=== PATIENT | male | born 1970 | race Caucasian/White ===

== ENCOUNTER 2018-04-14 19:08 | Inpatient (IN) | payer SELFPAY ==
[2018-04-14 19:09] VITALS: BP 150/113; PULSE 115; RESP 17; TEMP 36.9; O2SAT 98; BMI 33.2
--- NOTE | 2018-04-14 19:16 | RAD_ITS ---
STUDY: X-RAY CHEST REASON FOR EXAM: Male, 47 years old. Shortness of breath. Chest pain TECHNIQUE: Single AP portable view of the chest. COMPARISON: None. FINDINGS: There are monitoring devices There is mild interstitial accentuation. There is no demonstrated pleural abnormality. There is moderate cardiac enlargement. Normal mediastinum and maria esther. Normal visualized pulmonary arteries. Normal visualized aortic arch and descending thoracic aorta. Normal visualized thoracic spine. Normal visualized ribs, clavicles, and shoulders. There is no demonstrated abnormality of the visualized soft tissue structures of the upper abdomen. RAD/Chest 1 View (Portable) IMPRESSION: Cardiac enlargement. Interstitial edema or fibrosis. Electronically Signed: Jose Lambert MD at 19:54 EDT , Service support ,
--- NOTE | 2018-04-14 19:16 | EKG12_ITS ---
Test Reason : CHEST TIGHTNESS,SOB Blood Pressure : / mmHG Vent. Rate : 116 BPM Atrial Rate : 116 BPM P-R Int : 136 ms QRS Dur : 092 ms QT Int : 346 ms P-R-T Axes : 057 -26 004 degrees QTc Int : 480 ms Sinus tachycardia with frequent Premature ventricular complexes and Fusion complexes Right atrial enlargement Borderline ECG Confirmed by JORGE HURD, GERI ([id number]), image editor SANTIAGO BUENO ([id number]) on 04/19/2018 3:13:46 PM Referred By: SHELLY/NELY Confirmed By:GERI PATEL MD
--- NOTE | 2018-04-14 19:18 | ED.RN ---
NO OLD EKGS IN MUSE.
--- NOTE | 2018-04-14 19:56 | CT_ITS ---
STUDY: CTA CHEST REASON FOR EXAM: Male, 47 years old. Dyspnea RADIATION DOSAGE (If Supplied By Facility): CTDIvol = ( 20.05 ) mGy, DLP = ( 648.56 ) mGycm TECHNIQUE: The examination was performed with the intravenous administration of 100 ml of Isovue 370 contrast material. Post-processing of the angiographic images was performed, with multiplanar reformation and 3D reconstruction. Individualized dose optimization techniques were used for this CT. COMPARISON: Chest x-ray. FINDINGS: Normal enhancement of the main pulmonary artery and right and left pulmonary arteries. Small filling defect involving right lower lung pulmonary arteries consistent with embolism, series 2 images 103/265 through 111/265 . Normal thoracic aorta and visualized great vessels. There is no demonstrated aortic dissection. There is cardiomegaly. Normal mediastinum. Normal hilar regions. Normal visualized trachea and bronchi. The lungs are well expanded. There are lower lung interstitial septal and groundglass opacities. There is small right pleural effusion Normal chest wall structures. Normal osseous structures. Normal visualized upper abdomen. CT/CTA Chest W/WO Contrast IMPRESSION: Abnormal CTA chest examination, with a demonstrated small pulmonary embolism on the right. Small right pleural effusion. Lower lung edema. Results discussed with Dr. Matos. N.B. : The above information has been verbally conveyed by Jose Lambret MD to Hemal Matos MD, on 04/14/2018 22:00:45 (ET). Electronically Signed: Jose Lambert MD at 21:26 EDT , Service support ,
--- NOTE | 2018-04-14 20:00 | ED.VISSUMM ---
- ER Visit Summary Date of Service: 04/14/18 Chief Complaint: Exertional dyspnea History of Present Illness: The patient is a [address] of hypertension for which he took himself off his medications. Currently is not seeing a doctor. Patient states he was fine up until about a week ago. States he just has not felt right. He has had exertional dyspnea. Especially with cutting the grass or with walking steps. Intermittent mild chest pain. He is never had a DVT or PE. He denies any significant recent travel or surgery. He has developed swelling in both legs. He has no prior cardiac history of cardiac workup. He denies any hemoptysis or calf pain. He does state that he felt feverish. Physical Examination: Middle-aged male. Initial blood pressure 115/113. Temperature 98. Pulse ox 98% on room air. He is tachycardic at 115. No distress. H EENT exam unremarkable. Neck nontender no JVD. Lungs clear to auscultation bilaterally. Heart tachycardic rate about 117. I do not appreciate any murmur. It appears to be a regular rhythm. Abdomen soft nondistended normal bowel sounds no peritoneal signs. He is moving all 4 extremities. Neurovascularly intact. He is equal symmetrical career representative strength. Dorsi and plantar flexion intact. He does have 1+ pitting edema in both lower extremities are equal symmetrical. Calves are nontender without cords. Neurologically is awake and alert. Back is nontender. Test Results: Patient will undergo cardiac workup. Portable chest x-ray appears to have cardiomegaly. And mild vascular congestion. There is no infiltrate. Read both by myself and the radiologist. EKG shows a sinus tachycardia with PVCs. His right atrial enlargement and LVH.. Chemistries unremarkable except for creatinine 1.3. Gap of 8. TSH normal. Troponin 0 0.055. His beta metric peptide is elevated at 2411 consistent with congestive heart failure. CTA of the chest shows a small right lateral PE according to the radiologist. Also bilateral pleural effusions. No pericardial effusion. Again read by the radiologist. Emergency Department Course and Treatment: Patient is tachycardic with exertional dyspnea. Chest x-ray appears to have cardiomegaly. He will undergo further evaluation. Given IV Lasix. Will be started on Xarelto for a possible PE. We may have to do additional blood pressure medications. Treatment Plan: I spoke to both the hospitalist and also the manager front button breaker Dr. Manoj Rowland. She will be admitted to the PCU. Will have echocardiogram done in the morning. Disposition: Admission Impression: Acute exertional dyspnea Cardiomegaly Acute congestive heart failure Acute on chronic hypertension with medical noncompliance Small right lateral pulmonary emboli Peripheral lower extremity edema This note was generated with [employer] dictation software. It may contain incorrect words, spelling, and punctuation that were not noted in review of the chart prior to signing ED Disposition - Plan for ED Patient: Chief Complaint: Shortness of Breath Referrals: NOT,DEFINED [NON-STAFF] -
--- NOTE | 2018-04-14 20:04 | ED.DCSUM_ITS ---
- ER Visit Summary Date of Service: 04/14/18 Chief Complaint: Exertional dyspnea History of Present Illness: The patient is a [address] of hypertension for which he took himself off his medications. Currently is not seeing a doctor. Patient states he was fine up until about a week ago. States he just has not felt right. He has had exertional dyspnea. Especially with cutting the grass or with walking steps. Intermittent mild chest pain. He is never had a DVT or PE. He denies any significant recent travel or surgery. He has developed swelling in both legs. He has no prior cardiac history of cardiac workup. He denies any hemoptysis or calf pain. He does state that he felt feverish. Physical Examination: Middle-aged male. Initial blood pressure 115/113. Temperature 98. Pulse ox 98% on room air. He is tachycardic at 115. No distress. H EENT exam unremarkable. Neck nontender no JVD. Lungs clear to auscultation bilaterally. Heart tachycardic rate about 117. I do not appreciate any murmur. It appears to be a regular rhythm. Abdomen soft nondistended normal bowel sounds no peritoneal signs. He is moving all 4 extremities. Neurovascularly intact. He is equal symmetrical folder seamer automatic strength. Dorsi and plantar flexion intact. He does have 1+ pitting edema in both lower extremities are equal symmetrical. Calves are nontender without cords. Neurologically is awake and alert. Back is nontender. Test Results: Patient will undergo cardiac workup. Portable chest x-ray appears to have cardiomegaly. And mild vascular congestion. There is no infiltrate. Read both by myself and the radiologist. EKG shows a sinus tachycardia with PVCs. His right atrial enlargement and LVH.. Chemistries unremarkable except for creatinine 1.3. Gap of 8. TSH normal. Troponin 0 0.055. His beta metric peptide is elevated at 2411 consistent with congestive heart failure. CTA of the chest shows a small right lateral PE according to the radiologist. Also bilateral pleural effusions. No pericardial effusion. Again read by the radiologist. Emergency Department Course and Treatment: Patient is tachycardic with exertional dyspnea. Chest x-ray appears to have cardiomegaly. He will undergo further evaluation. Given IV Lasix. Will be started on Xarelto for a possible PE. We may have to do additional blood pressure medications. Treatment Plan: I spoke to both the hospitalist and also the human factors engineer cutting and boning supervisor Dr. Manoj Rowland. She will be admitted to the PCU. Will have echocardiogram done in the morning. Disposition: Admission Impression: Acute exertional dyspnea Cardiomegaly Acute congestive heart failure Acute on chronic hypertension with medical noncompliance Small right lateral pulmonary emboli Peripheral lower extremity edema This note was generated with [employer] dictation software. It may contain incorrect words, spelling, and punctuation that were not noted in review of the chart prior to signing ED Disposition - Plan for ED Patient: Chief Complaint: Shortness of Breath Referrals: NOT,DEFINED [NON-STAFF] -
[2018-04-14 20:10] LABS: Absolute Lymphocyte Count 1.29 X10^3/ul (0.83-4.51); Absolute Neutrophil Count 8.3 X10^3/uL (2.0-7.7); Basophil# 0.02 X10^3/uL; Basophil% 0.2 % (0-1); Eosinophil# 0.21 X10^3/uL; Eosinophils% 1.9 % (0-5); Hematocrit 47.1 % (40-54); Hemoglobin 15.3 g/dl (13.0-16.5); Lymphocyte # 1.29 X10^3/ul (4.0); Mean Corp Hgb Conc 32.5 g/gl (32-36); Mean Corpuscular Hgb 29.8 pg (27.0-32.0); Mean Corpuscular Volume 91.8 fL (80-94); Mean Platelet Vol. 11.2 fl (6.2-12.0); Monocyte# 0.91 X10^3/uL; Monocyte% 8.4 % (0-10); Neutrophil # 8.34 X10^3/uL (2.7-7.7); Neutrophil % 77.4 % (47-70); POSITIVE COUNT NO; POSITIVE DIFFERENTIAL NO; POSITIVE MORPHOLOGY NO; Platelet Count 222 K/mm3 (150-450); RBC Distribution Width CV 14.4 % (11.6-14.6); RBC Distribution Width SD 47.9 fl (35.1-43.9); Red Blood Count 5.13 M/mm3 (4.6-6.2); White Blood Count 10.8 K/mm3 (4.4-11.0)
[2018-04-14 20:32] LABS: Anion Gap 8 (5-15); BUN 19 mg/dL (7-18); BUN/Creat Ratio 13.8 RATIO (10-20); Calcium,Total 8.1 mg/dL (8.5-10.1); Chloride 110 mmol/L (98-107); Creatinine, Serum 1.38 mg/dL (0.70-1.30); EST Glomerular Filtration Rate 59 mL/min (>60); Est Glom Filt Rate - Afr Amer 72 mL/min (>60); Glucose 114 mg/dL (74-106); Potassium 4.5 mmol/L (3.5-5.1); Sodium Level 140 mmol/L (136-145); Thyroid Stim Hormone (TSH) 0.55 uIU/mL (0.358-3.74)
[2018-04-14 20:55] LABS: BNP,B-Type NATRIURETIC PEPTIDE 2411.8 pg/mL (0-100)
[2018-04-14 21:31] VITALS: PULSE 112; RESP 16; O2SAT 98
[2018-04-14 21:33] VITALS: BP 157/119
[2018-04-14] MEDS: Rivaroxaban 15 MG Tablet PO (21:54)
[2018-04-14] MEDS: Furosemide 40 MG/4 ML Vial IV (21:54)
--- NOTE | 2018-04-14 22:24 | HP.PCM_ITS ---
Problem List (1) Dyspnea Status: Acute (2) HTN (hypertension) Status: Chronic History of Present Illness Date of Admission: 04/14/18 Chief Complaint: Dyspnea The patient is a 47 year old M with a significant history of hypertension who presents with dyspnea times 1 week. Patient has dyspnea at rest which increases with exertion. Associated with his symptoms is fatigue, insomnia and subjective fever. Also he feels that his belly in his legs has increased in size. His symptoms has progressively worsened. He denies any paroxysmal nocturnal dyspnea or orthopnea. 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 At emergency department a chest x-ray showed enlarged heart; and interstitial edema or fibrosis. On admission BNP was markedly elevated above 2400. CT of chest showed small pulmonary embolism on the right; small right pleural effusion and lower lung edema. Emergency department doctor consulted with cardiology. Patient received Lasix IV at emergency department and he was started on Xarelto. Past Medical History Past Medical History (Chronic Problems): Chronic Problems HTN (hypertension) (Chronic) Allergies No Known Allergies Allergy (Verified 04/14/18 19:09) Home Medications: Ambulatory Orders Medication Instructions Recorded NK 04/14/18 Surgical History: - - Surgery at left wrist Psychiatric History: No pertinent psych hx Lives: Spouse/ Significant Other Smoking Status: Current every day smoker Tobacco Use: Chew Alcohol: Occasional Drugs: None - *Family History Paternal Family History: Family History (Last Updated 04/15/18 @ 05:43 by Kevon Portillo MD) Father Myocardial infarction Review of Systems Constitutional: Reports: Fever - subjective., Fatigue. Denies: Chills HEENT: Reports: Nasal Congestion - mild. Denies: Head Aches, Sinus Congestion, Sinus Drainage Cardiovascular: Reports: Chest Pain - substernal; achy and sharp. Denies: Orthopnea, Palpitations, Paroxysmal Noc. Dyspnea Respiratory: Reports: Shortness of breath at rest, Shortness of breath upon exertion Gastrointestinal: Reports: Nausea. Denies: Abdominal Pain, Vomiting Genitourinary: Denies: Dysuria Musculoskeletal: Denies: Joint Pain, Joint Tenderness Skin: Denies: Rash, Wounds Neurological: Denies: Numbness, Tingling, Focal weakness Psychiatric: Denies: Anxiety, Depression, Homicidal Ideations, Suicidal Ideat ions Hematologic/ Lymphatic: Denies: Easy Bruising, Easy Bleeding VTE Information - Inpt Only VTE Present on Admission: Yes VTE Mechan Device Prophylaxis: None VTE Pharm Prophylaxis ordered?: No Reason prophylaxis not ordered:: Treatment Not Indicated - Started on Xarelto for PE. Patient Problems: Active and Suspected Problems Dyspnea (Acute) - Physical Exam General: Alert, Oriented x3, Cooperative HEENT: Atraumatic, PERRLA, EOMI, Normocephalic Neck: Supple, No Nuchal Rigidity, Trachea Midline Lungs: Rales - Left lower lug morris Cardiovascular: Regular rate, No murmurs Abdomen: Bowel Sounds Present, Soft, Non Tender Extremities: No edema, Capillary Refill Less than 3 Seconds Skin: No rashes, No breakdown Musculoskeletal: No Tenderness to Palpation of Joints or Extremities Neurological: Cranial nerves II-XII grossly intact Psych/Mental Status: Anxious Vital Signs Temp Pulse Resp BP Pulse Ox 98.4 F 112 H 16 157/119 H 98 04/14/18 19:09 04/14/18 21:31 04/14/18 21:31 04/14/18 21:33 04/14/18 21:31 Oxygen Flow Rate (L/min) 2 Oxygen Delivery Method Nasal Cannula Weight: 93.3 kg Body Mass Index (BMI) 33.2 Laboratory Tests Past 24 Hrs 04/14/18 04/14/18 04/14/18 20:00 20:00 20:00 WBC 10.8 RBC 5.13 Hgb 15.3 Hct 47.1 MCV 91.8 MCH 29.8 MCHC 32.5 RDW 14.4 RDW Differential 47.9 H Plt Count 222 MPV 11.2 Immature Gran % (Auto) 0.100 Neut % (Auto) 77.4 H Lymph % (Auto) 12.0 L [place]comb % (Auto) 8.4 Eos % (Auto) 1.9 Baso % (Auto) 0.2 Absolute Neuts (auto) 8.3 H Absolute Lymphs (auto) 1.29 Total Counted Not Reportable Sodium 140 Potassium 4.5 Chloride 110 H Carbon Dioxide 22.0 Anion Gap 8 BUN 19 H Creatinine 1.38 H Estim Creat Clear Calc 61.00 Est GFR (MDRD) Af Amer 72 Est GFR (MDRD) Non-Af 59 L BUN/Creatinine Ratio 13.8 Glucose 114 H Calcium 8.1 L Troponin I 0.055 H B-Natriuretic Peptide 2411.8 H TSH 0.55 Assessment/Plan All Active Problems Dyspnea (Acute) The patient is a 47 year old M with a significant history of hypertension who presents with dyspnea; fatigue; and found to have elevated BNP; elevated troponin; kidney injury and radiographic evidence of cardiomegaly pulmonary infiltrates, right pleural effusion and small right pulmonary embolism concerning for probable heart failure and small PE. Probable heart failure. With symptoms of shortness of breath; fatigue; elevated BNP; elevated troponin; radiographic evidence of cardiomegaly and pulmonary infiltrates; and small right pleural effusion patient likely has heart failure. Chest x-ray and chest CT independently reviewed confirms cardiomegaly; pulmonary effusion and small right pleural effusion. Since his blood pressure can tolerate; and patient has tachycardia will start him on Coreg ESTEFANY inhibitor was not started due to abnormal creatinine which itself could be due to cardiorenal syndrome. Notably his creatinine further increased after administration of Lasix. Cardiology consulted and will defer estefany inhibitor therapy consideration to cardiology Low-salt diet Patient reports need of taking increased fluid at this time; and difficulty with fluid restriction. Patient placed on 2000 mL's fluid restriction per day instead of 1500ml/day. Echocardiogram ordered. Pulmonary embolism. CTA patient has a small pulmonary embolism on the right. Xarelto started from the emergency department; continued. HANNAH Because of his relatively younger age HANNAH is more likely. CKD is less likely. CR: 1.45<1.38 Likely secondary to cardiorenal syndrome Lasix as above Trend BMP Urine protein to creatinine ratio ordered in the setting of hypertension Hypertension At admission blood pressure was not within goal. Patient reported that previously he was on blood pressure medication but he quit taking because he felt horrible with taking the medication. Coreg and lasix as above Hydralazine prn Tobacco abuse Patient chew tobacco Counseled Patient declines nicotine patch. DVT prophylaxis Started on Xarelto for PE. Code Visit Inpatient E&M: 28663 Init Hosp L3
--- NOTE | 2018-04-14 22:26 | ECHOD_ITS ---
Reason For Study: DYSPNEA/SOB Procedure This was a 2D Doppler, Color Flow transthoracic echocardiogram. Exam performed portable in patient room. Left Ventricle Moderately dilated left ventricle. Apical false tendon noted. The estimated ejection fraction is 20 %. Stage 2 diastolic dysfunction. There is severe global hypokinesis of the left ventricle. Right Ventricle Normal RV size. Normal systolic function. Atria The left atrium is mildly enlarged. Normal right atrium. Prominent eustachian valve. Mitral Valve Normal mitral valve. Trivial eccentric mitral valve insufficiency. Tricuspid Valve Normal tricuspid valve. Mild (1+) tricuspid valve insufficiency. Pulmonary artery systolic pressure is 45 mmHg. Mild pulmonary hypertension. Aortic Valve Normal aortic valve. Trisinus/trileaflet aortic valve. Pulmonic Valve Normal pulmonic valve. Great Vessels Normal aortic root. The pulmonary artery is normal size. Normal inferior vena cava. Pericardium/Pleural No pericardial effusion. MMode/2D Measurements & Calculations LVIDd: 6.5 cm IVSd: 1.2 cm Ao root diam: 3.1 cm LVIDs: 5.8 cm LVPWd: 1.3 cm LA dimension: 4.1 cm RVDd: 3.8 cm FS: 10.9 % LAV(MOD-bp): 80.8 ml EDV(MOD-sp4): 203.0 ml EDV(MOD-sp2): 220.5 ml LAV(MOD-bp) Indexed: 40.0 ml/m2 ESV(MOD-sp4): 148.0 ml EF(MOD-sp2): 30.3 % LAV(MOD-sp2): 74.6 ml EF(MOD-sp4): 27.1 % LAV(MOD-sp4): 70.3 ml SV(MOD-sp4): 55.0 ml SV(MOD-sp2): 66.8 ml LA A4 area: 23.4 cm2 RA A4 area: 20.0 cm2 Doppler Measurements & Calculations MV E max danny: 95.8 cm/sec Lat Peak E' Danny: 3.9 cm/sec Med Peak E' Danny: 3.0 cm/sec MV A max danny: 74.3 cm/sec E/E' lat: 24.3 E/E' med: 32.3 MV E/A: 1.3 Ao V2 max: 98.2 cm/sec LV V1 max: 79.9 cm/sec MR max danny: 446.9 cm/sec Ao max P.9 mmHg LV V1 max P.6 mmHg MR max P.9 mmHg PA V2 max: 87.2 cm/sec PI end-d danny: 150.5 cm/sec TR max danny: 325.0 cm/sec TR max P.5 mmHg Interpretation Summary Moderately dilated left ventricle. The estimated ejection fraction is 20 %. Stage 2 diastolic dysfunction. The left atrium is mildly enlarged. Mild (1+) tricuspid valve insufficiency. Pulmonary artery systolic pressure is 45 mmHg. Mild pulmonary hypertension. Ordering Physician: Manoj Rowland MD Referring Physician: BELGICA PCP Performed By: Lesley Arreola, ELHAM, RVT
[2018-04-14 22:35] VITALS: PULSE 110
[2018-04-14 22:38] LABS: International Normalized Ratio 1.1; Prothrombin Time (Protime)PT. 13.9 SECONDS (11.7-14.9)
[2018-04-14 22:43] VITALS: BMI 32.9
[2018-04-14 22:52] VITALS: BMI 33.0
[2018-04-14 23:17] VITALS: BP 149/103; PULSE 111; RESP 18; TEMP 37.4; O2SAT 98
[2018-04-14] MEDS: Carvedilol 6.25 MG Tablet PO (23:18)
[2018-04-15] VITALS (11 sets, daily range): BP systolic 133–144; BP diastolic 92–97; PULSE 91–100; RESP 16–18; TEMP 36.4–36.8; O2SAT 94–99
[2018-04-15 03:10] LABS: Anion Gap 9 (5-15); BUN 19 mg/dL (7-18); BUN/Creat Ratio 13.1 RATIO (10-20); Calcium,Total 8.2 mg/dL (8.5-10.1); Chloride 106 mmol/L (98-107); Cholesterol 140 mg/dL (200); Creatinine, Serum 1.45 mg/dL (0.70-1.30); EST Glomerular Filtration Rate 56 mL/min (>60); Est Glom Filt Rate - Afr Amer 68 mL/min (>60); Estimated Creatinine Clearance 58.06 ml/min; Glucose 104 mg/dL (74-106); High Density Lipoprotein 41 mg/dL; Potassium 4.4 mmol/L (3.5-5.1); Sodium Level 140 mmol/L (136-145); Triglycerides 145 mg/dL; Very Low Density Lipoprotein 29 mg/dL (5-40)
--- NOTE | 2018-04-15 06:46 | PCM.CONS.C ---
Reason for Consult Date of Consultation: 04/15/18 Reason for Consultation: Shortness of breath. History of Present Illness: The patient is a 47 year old M with no previous medical history other than hypertension for which she is not been treated. He said he started getting short of breath a day or 2 ago with no chest pain or palpitations. He denies any pedal edema but he said he was also fatigued. Due to the above he presented to the emergency room for evaluation he was noted to be markedly hypertensive with diastolic blood pressure was noted to be over 110 mmHg. His natruretic peptide was done which was noted to be over 2400. A CAT scan was also done which demonstrated a possible small right pulmonary embolism. He was admitted for further workup. He denies any chest pain shortness of breath has improved with diuresis and he has been able to lie flat. Past Medical History Allergies/Adverse Reactions: Allergies No Known Allergies Allergy (Verified 04/14/18 19:09) Home Medications: Ambulatory Orders Medication Instructions Recorded NK 04/14/18 Past Medical History (Chronic Problems): Chronic Problems HTN (hypertension) (Chronic) Surgical History: - - Surgery at left wrist Psychiatric History: No pertinent psych hx - *Family History Paternal Family History: Family History (Last Updated 04/15/18 @ 05:43 by Kevon Portillo MD) Father Myocardial infarction Lives: Spouse/ Significant Other Smoking Status: Current every day smoker Tobacco Use: Chew Alcohol: Occasional Drugs: None Review of Systems - Review of Systems General: Denies: Fever, Night Sweats, Fatigue Cardiovascular: Reports: Shortness of Breath, Shortness of Breath at Rest. Denies: Chest Discomfort, Orthopnea, PND, Peripheral Edema, Palpitations, Lightheadedness, Dizziness, Near Syncope, Syncope Respiratory: Denies: Cough, Sputum Production, Hemoptysis Gastrointestinal: Denies: Hematemesis, Hematochezia, Melena Genitourinary: Denies: Dysuria, Hematuria Skin: Denies: Rash Subjectve: Pleasant gentleman in no apparent distress Objective: Vital Signs Temp Pulse Resp BP Pulse Ox 98.3 F 99 16 144/92 H 98 04/15/18 05:00 04/15/18 05:00 04/15/18 05:00 04/15/18 05:00 04/15/18 05:00 Oxygen Flow Rate (L/min) 2 Oxygen Delivery Method Room Air Weight: 204 lb 2.369 oz Body Mass Index (BMI) 32.9 Intake and Output for Last 24 Hours 04/13/18 04/14/18 04/15/18 23:59 23:59 23:59 Output Total 1100 / 1100 1050 / 1050 Balance -1100 / -1100 -1050 / -1050 General: Awake, Alert, Oriented x 3 HEENT: PERRL, EOMI, Sclera Non Icteric Neck: Supple, Good ROM, No Lymph Node Enlargement Lungs: Diminished Yves Bases Cardiovascular: Regular Rhythm, Normal S1, Normal S2, No Murmurs, No Rubs, No Gallops Vascular: No Carotid Bruits, Normal Femoral Pulses, Normal Radial Pulses, Normal Dorsalis Pedal Pulse, Normal Posterior Tibial Pulses Abdomen: Bowel Sounds Present, Soft, Non Tender, No HSM, No Organomegaly Extremities: No Cyanosis, No Clubbing, Trace RLE Edema, Trace LLE Edema Neurological: No Focal Motor or Sensory Deficit 04/14/18 20:00: WBC 10.8, RBC 5.13, Hgb 15.3, Hct 47.1, MCV 91.8, MCH 29.8, MCHC 32.5, RDW 14.4, RDW Differential 47.9 H, Plt Count 222, MPV 11.2, Immature Gran % (Auto) 0.100, Neut % (Auto) 77.4 H, Lymph % (Auto) 12.0 L, [place] % (Auto) 8.4, Eos % (Auto) 1.9, Baso % (Auto) 0.2, Absolute Neuts (auto) 8.3 H, Total Counted Not Reportable 04/14/18 20:00: Sodium 140, Potassium 4.5, Chloride 110 H, Carbon Dioxide 22.0, Anion Gap 8, BUN 19 H, Creatinine 1.38 H, Est GFR (MDRD) Af Amer 72, Est GFR (MDRD) Non-Af 59 L, BUN/Creatinine Ratio 13.8, Glucose 114 H, Calcium 8.1 L, Troponin I 0.055 H 04/14/18 20:00: B-Natriuretic Peptide 2411.8 H 04/14/18 20:00: PT 13.9, INR 1.1 04/14/18 22:56: Magnesium 2.0 04/14/18 22:56: Troponin I 0.058 H 04/15/18 02:27: Sodium 140, Potassium 4.4, Chloride 106, Carbon Dioxide 25.0, Anion Gap 9, BUN 19 H, Creatinine 1.45 H, Est GFR (MDRD) Af Amer 68, Est GFR (MDRD) Non-Af 56 L, BUN/Creatinine Ratio 13.1, Glucose 104, Calcium 8.2 L, Triglycerides 145, Cholesterol 140, LDL Cholesterol 70, VLDL Cholesterol 29, HDL Cholesterol 41 04/15/18 02:27: Troponin I 0.058 H Rhythm: EKG: Normal sinus rhythm with a rate of 116 bpm occasional premature ventricular complexes and left ventricular hypertrophy Assessment/Plan 1. Shortness of breath The above appears to be more likely and consistent with acute congestive heart failure. My recommendation at this time would be for us to obtain an echocardiogram to assess his left ventricular function and aggressively treat his blood pressure. He has been started on carvedilol and Lasix which will be continued. Depending on the results of the echocardiogram further recommendations will be made. 2. Uncontrolled hypertension Patient has a history of uncontrolled hypertension and has not been compliant Will start Coreg and Norvasc and a small dose of ESTEFANY 3. Abnormal cardiac enzymes The above likely secondary to demand ischemia. We will continue to follow trends. 4. Possible pulmonary embolism Review with radiologist. In the meantime would continue Xarelto 15 mg twice a day. Thank you for allowing me to participate in the care of your patient. Please don't hesitate to call if any issues arise
[2018-04-15 08:58] LABS: Protein:Creat Ratio 3120 mg/g CRE (0-200)
[2018-04-15] MEDS: Rivaroxaban 15 MG Tablet PO (09:46)
[2018-04-15] MEDS: Carvedilol 6.25 MG Tablet PO ×2 (09:46→21:01)
[2018-04-15] MEDS: Furosemide 40 MG/4 ML Vial IV ×2 (09:46→17:33)
--- NOTE | 2018-04-15 13:34 | CASEMGMT ---
SW met with patient as he is self pay. 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 SW asked if he has applied for Medicaid and he has not. SW told him about [facility] and [facility]. SW gave him a packet of resources. SW told him we can follow to see what medications he will be discharged on in the event they are expensive. OSWALDO told him [facility] has a program where we can assist one time a year. Patient does not have a preferred pharmacy and he does not have a PCP. He was given a list of local physicians. He does not have a healthcare POA or LW. He plans on returning home without any additional needs. SW to follow for possible medication assistance. Parris JACOME MSW
--- NOTE | 2018-04-15 14:02 | PN_ITS ---
<Dmitri Duarte - Last Filed: 04/15/18 13:56> Patient Problems: Active and Suspected Problems Dyspnea (Acute) Subjective: Patient reports still some tightness with breathing. No overt CP. No SOB. Edema is significantly improved. Pt wants to go home. Standing, off O2, ambulating in room, NAD. - Physical Exam General: Alert, Oriented x3, Cooperative HEENT: Atraumatic, PERRLA, EOMI, Normocephalic Neck: Supple, No JVD, Negative Carotid Bruits Lungs: Rales - faint, Wheezes - faint Cardiovascular: Regular rate, No murmurs Abdomen: Bowel Sounds Present, Soft, Non Tender Extremities: Capillary Refill Less than 3 Seconds, Edema - trace pitting edema BLE R>L Skin: No rashes, No breakdown, - - bluish discoloartion around belly button chronic Musculoskeletal: No Tenderness to Palpation of Joints or Extremities Neurological: Cranial nerves II-XII grossly intact Psych/Mental Status: Normal Affect, Appropriate Vital Signs Temp Pulse Resp BP Pulse Ox 97.8 F 95 18 133/93 H 96 04/15/18 09:47 04/15/18 11:00 04/15/18 09:47 04/15/18 09:47 04/15/18 09:47 Oxygen Flow Rate (L/min) 2 Oxygen Delivery Method Room Air Weight: 204 lb 2.369 oz Body Mass Index (BMI) 32.9 Intake and Output for Last 24 Hours 04/13/18 04/14/18 04/15/18 23:59 23:59 23:59 Intake Total 620 / 620 Output Total 1100 / 1100 2150 / 2150 Balance -1100 / -1100 -1530 / -1530 Laboratory Tests Past 24 Hrs 04/14/18 04/14/18 04/14/18 20:00 20:00 20:00 WBC 10.8 RBC 5.13 Hgb 15.3 Hct 47.1 MCV 91.8 MCH 29.8 MCHC 32.5 RDW 14.4 RDW Differential 47.9 H Plt Count 222 MPV 11.2 Immature Gran % (Auto) 0.100 Neut % (Auto) 77.4 H Lymph % (Auto) 12.0 L [place] % (Auto) 8.4 Eos % (Auto) 1.9 Baso % (Auto) 0.2 Absolute Neuts (auto) 8.3 H Absolute Lymphs (auto) 1.29 Total Counted Not Reportable PT INR Sodium 140 Potassium 4.5 Chloride 110 H Carbon Dioxide 22.0 Anion Gap 8 BUN 19 H Creatinine 1.38 H Estim Creat Clear Calc 61.00 Est GFR (MDRD) Af Amer 72 Est GFR (MDRD) Non-Af 59 L BUN/Creatinine Ratio 13.8 Glucose 114 H Calcium 8.1 L Magnesium Troponin I 0.055 H B-Natriuretic Peptide 2411.8 H Triglycerides Cholesterol LDL Cholesterol VLDL Cholesterol HDL Cholesterol TSH 0.55 Ur Random Microalbumin U Random Total Protein Urine Creatinine Microalb/Creat Ratio Protein/Creatinin Ratio 04/14/18 04/14/18 04/14/18 20:00 22:56 22:56 WBC RBC Hgb Hct MCV MCH MCHC RDW RDW Differential Plt Count MPV Immature Gran % (Auto) Neut % (Auto) Lymph % (Auto) [place] % (Auto) Eos % (Auto) Baso % (Auto) Absolute Neuts (auto) Absolute Lymphs (auto) Total Counted PT 13.9 INR 1.1 Sodium Potassium Chloride Carbon Dioxide Anion Gap BUN Creatinine Estim Creat Clear Calc Est GFR (MDRD) Af Amer Est GFR (MDRD) Non-Af BUN/Creatinine Ratio Glucose Calcium Magnesium 2.0 Troponin I 0.058 H B-Natriuretic Peptide Triglycerides Cholesterol LDL Cholesterol VLDL Cholesterol HDL Cholesterol TSH Ur Random Microalbumin U Random Total Protein Urine Creatinine Microalb/Creat Ratio Protein/Creatinin Ratio 04/15/18 04/15/18 04/15/18 02:27 02:27 08:20 WBC RBC Hgb Hct MCV MCH MCHC RDW RDW Differential Plt Count MPV Immature Gran % (Auto) Neut % (Auto) Lymph % (Auto) [place] % (Auto) Eos % (Auto) Baso % (Auto) Absolute Neuts (auto) Absolute Lymphs (auto) Total Counted PT INR Sodium 140 Potassium 4.4 Chloride 106 Carbon Dioxide 25.0 Anion Gap 9 BUN 19 H Creatinine 1.45 H Estim Creat Clear Calc 58.06 Est GFR (MDRD) Af Amer 68 Est GFR (MDRD) Non-Af 56 L BUN/Creatinine Ratio 13.1 Glucose 104 Calcium 8.2 L Magnesium Troponin I 0.058 H B-Natriuretic Peptide Triglycerides 145 Cholesterol 140 LDL Cholesterol 70 VLDL Cholesterol 29 HDL Cholesterol 41 TSH Ur Random Microalbumin 3010.0 U Random Total Protein Urine Creatinine 130.00 Microalb/Creat Ratio 2315.4 H Protein/Creatinin Ratio 04/15/18 08:20 WBC RBC Hgb Hct MCV MCH MCHC RDW RDW Differential Plt Count MPV Immature Gran % (Auto) Neut % (Auto) Lymph % (Auto) [place] % (Auto) Eos % (Auto) Baso % (Auto) Absolute Neuts (auto) Absolute Lymphs (auto) Total Counted PT INR Sodium Potassium Chloride Carbon Dioxide Anion Gap BUN Creatinine Estim Creat Clear Calc Est GFR (MDRD) Af Amer Est GFR (MDRD) Non-Af BUN/Creatinine Ratio Glucose Calcium Magnesium Troponin I B-Natriuretic Peptide Triglycerides Cholesterol LDL Cholesterol VLDL Cholesterol HDL Cholesterol TSH Ur Random Microalbumin U Random Total Protein 390.0 H Urine Creatinine 125.00 Microalb/Creat Ratio Protein/Creatinin Ratio 3120 H Medical Necessity - Tobacco Use Smoking Status: Current every day smoker Tobacco Use: Chew Assessment/Plan All Active Problems Dyspnea (Acute) 1. Acute CHF - improved. Cardiology following. Continue Lasix. Echo Pending. No hx. Defer rupinder-i with questionable renal fx. Continue Coreg. TSH normal. 2. HTN - pt has hx but was not taking medications for this. Improved. Coreg, norvasc. 3. PE ?right sided on CTA -if present continue xarelto. DVT ppx: xarelto DC planning: Pending further cardiac workup. This patient was seen by Dmitri Duarte PA-C under the supervision of Doctor Alma. <Ernie Marquez F - Last Filed: 04/15/18 18:20> - Physical Exam Vital Signs Temp Pulse Resp BP Pulse Ox 97.6 F L 92 16 139/93 H 99 04/15/18 15:45 04/15/18 15:45 04/15/18 15:45 04/15/18 15:45 04/15/18 15:45 Oxygen Flow Rate (L/min) 2 Oxygen Delivery Method Room Air Weight: 204 lb 2.369 oz Body Mass Index (BMI) 32.9 Intake and Output for Last 24 Hours 04/13/18 04/14/18 04/15/18 23:59 23:59 23:59 Intake Total 1100 / 1100 Output Total 1100 / 1100 2650 / 2650 Balance -1100 / -1100 -1550 / -1550 Laboratory Tests Past 24 Hrs 04/14/18 04/14/18 04/14/18 20:00 20:00 20:00 WBC 10.8 RBC 5.13 Hgb 15.3 Hct 47.1 MCV 91.8 MCH 29.8 MCHC 32.5 RDW 14.4 RDW Differential 47.9 H Plt Count 222 MPV 11.2 Immature Gran % (Auto) 0.100 Neut % (Auto) 77.4 H Lymph % (Auto) 12.0 L [place] % (Auto) 8.4 Eos % (Auto) 1.9 Baso % (Auto) 0.2 Absolute Neuts (auto) 8.3 H Absolute Lymphs (auto) 1.29 Total Counted Not Reportable PT INR Sodium 140 Potassium 4.5 Chloride 110 H Carbon Dioxide 22.0 Anion Gap 8 BUN 19 H Creatinine 1.38 H Estim Creat Clear Calc 61.00 Est GFR (MDRD) Af Amer 72 Est GFR (MDRD) Non-Af 59 L BUN/Creatinine Ratio 13.8 Glucose 114 H Calcium 8.1 L Magnesium Troponin I 0.055 H B-Natriuretic Peptide 2411.8 H Triglycerides Cholesterol LDL Cholesterol VLDL Cholesterol HDL Cholesterol TSH 0.55 Ur Random Microalbumin U Random Total Protein Urine Creatinine Microalb/Creat Ratio Protein/Creatinin Ratio 04/14/18 04/14/18 04/14/18 20:00 22:56 22:56 WBC RBC Hgb Hct MCV MCH MCHC RDW RDW Differential Plt Count MPV Immature Gran % (Auto) Neut % (Auto) Lymph % (Auto) [place] % (Auto) Eos % (Auto) Baso % (Auto) Absolute Neuts (auto) Absolute Lymphs (auto) Total Counted PT 13.9 INR 1.1 Sodium Potassium Chloride Carbon Dioxide Anion Gap BUN Creatinine Estim Creat Clear Calc Est GFR (MDRD) Af Amer Est GFR (MDRD) Non-Af BUN/Creatinine Ratio Glucose Calcium Magnesium 2.0 Troponin I 0.058 H B-Natriuretic Peptide Triglycerides Cholesterol LDL Cholesterol VLDL Cholesterol HDL Cholesterol TSH Ur Random Microalbumin U Random Total Protein Urine Creatinine Microalb/Creat Ratio Protein/Creatinin Ratio 04/15/18 04/15/18 04/15/18 02:27 02:27 08:20 WBC RBC Hgb Hct MCV MCH MCHC RDW RDW Differential Plt Count MPV Immature Gran % (Auto) Neut % (Auto) Lymph % (Auto) [place] % (Auto) Eos % (Auto) Baso % (Auto) Absolute Neuts (auto) Absolute Lymphs (auto) Total Counted PT INR Sodium 140 Potassium 4.4 Chloride 106 Carbon Dioxide 25.0 Anion Gap 9 BUN 19 H Creatinine 1.45 H Estim Creat Clear Calc 58.06 Est GFR (MDRD) Af Amer 68 Est GFR (MDRD) Non-Af 56 L BUN/Creatinine Ratio 13.1 Glucose 104 Calcium 8.2 L Magnesium Troponin I 0.058 H B-Natriuretic Peptide Triglycerides 145 Cholesterol 140 LDL Cholesterol 70 VLDL Cholesterol 29 HDL Cholesterol 41 TSH Ur Random Microalbumin 3010.0 U Random Total Protein Urine Creatinine 130.00 Microalb/Creat Ratio 2315.4 H Protein/Creatinin Ratio 04/15/18 08:20 WBC RBC Hgb Hct MCV MCH MCHC RDW RDW Differential Plt Count MPV Immature Gran % (Auto) Neut % (Auto) Lymph % (Auto) [place] % (Auto) Eos % (Auto) Baso % (Auto) Absolute Neuts (auto) Absolute Lymphs (auto) Total Counted PT INR Sodium Potassium Chloride Carbon Dioxide Anion Gap BUN Creatinine Estim Creat Clear Calc Est GFR (MDRD) Af Amer Est GFR (MDRD) Non-Af BUN/Creatinine Ratio Glucose Calcium Magnesium Troponin I B-Natriuretic Peptide Triglycerides Cholesterol LDL Cholesterol VLDL Cholesterol HDL Cholesterol TSH Ur Random Microalbumin U Random Total Protein 390.0 H Urine Creatinine 125.00 Microalb/Creat Ratio Protein/Creatinin Ratio 3120 H Code Visit Addendum: Dr. Marquez I personally examined the patient and reviewed the chart. I agree with the above. Mr. Bui is a 47-year-old male presenting with no past medical history for shortness of breath and dyspnea on exertion. On admission in the ER he was found to be hypertensive and tachycardic CTA was thought to demonstrate a right pulmonary embolism. On review with the radiologist it was felt that he did not have a PE and so anticoagulation was discontinued. He has been started on Coreg, Lasix, and Norvasc for his blood pressure. He did have an echo today which demonstrated an ejection fraction of 20% with stage II diastolic dysfunction and pulmonary artery pressure of 45 mmHg. Will discuss further cardiac workup with cardiology prior to discharge. Inpatient E&M: [id number] Subs Hosp L2
[2018-04-16 03:00] VITALS: PULSE 85
[2018-04-16 03:10] VITALS: BP 125/102; PULSE 86; RESP 16; TEMP 36.4; O2SAT 99
[2018-04-16 06:20] LABS: Anion Gap 7 (5-15); BUN 19 mg/dL (7-18); BUN/Creat Ratio 12.3 RATIO (10-20); Calcium,Total 8.4 mg/dL (8.5-10.1); Chloride 104 mmol/L (98-107); Creatinine, Serum 1.55 mg/dL (0.70-1.30); EST Glomerular Filtration Rate 52 mL/min (>60); Est Glom Filt Rate - Afr Amer 63 mL/min (>60); Estimated Creatinine Clearance 54.31 ml/min; Glucose 93 mg/dL (74-106); Potassium 4.7 mmol/L (3.5-5.1); Sodium Level 140 mmol/L (136-145)
[2018-04-16 07:02] VITALS: O2SAT 95
[2018-04-16 07:07] VITALS: PULSE 88
--- NOTE | 2018-04-16 07:31 | PCM.PN.CARD ---
Subjectve: Patient seen and evaluated. Appears to be lying flat. No further shortness of breath. Objective: Vital Signs Temp Pulse Resp BP Pulse Ox 97.6 F L 86 16 125/102 H 99 04/16/18 03:10 04/16/18 03:10 04/16/18 03:10 04/16/18 03:10 04/16/18 03:10 Oxygen Flow Rate (L/min) 2 Oxygen Delivery Method Room Air Weight: 440 lb 4.21 oz Body Mass Index (BMI) 32.9 Intake and Output for Last 24 Hours 04/14/18 04/15/18 04/16/18 23:59 23:59 23:59 Intake Total 1100 / 1100 Output Total 1100 / 1100 3400 / 3400 Balance -1100 / -1100 -2300 / -2300 General: Awake, Alert, Oriented x 3 HEENT: PERRL, EOMI, Sclera Non Icteric Neck: Supple, Good ROM, No Lymph Node Enlargement Lungs: Clear to auscultation Cardiovascular: Regular Rhythm, Normal S1, Normal S2, No Murmurs, No Rubs, No Gallops Vascular: No Carotid Bruits, Normal Femoral Pulses, Normal Radial Pulses, Normal Dorsalis Pedal Pulse, Normal Posterior Tibial Pulses Abdomen: Bowel Sounds Present, Soft, Non Tender, No HSM, No Organomegaly Extremities: No Cyanosis, No Clubbing, No edema Neurological: No Focal Motor or Sensory Deficit 04/16/18 05:30: Sodium 140, Potassium 4.7, Chloride 104, Carbon Dioxide 29.0, Anion Gap 7, BUN 19 H, Creatinine 1.55 H, Est GFR (MDRD) Af Amer 63, Est GFR (MDRD) Non-Af 52 L, BUN/Creatinine Ratio 12.3, Glucose 93, Calcium 8.4 L Rhythm: EKG: ECHO: Stress Test: Cardiac Cath: PCI: CT Surgery: Holter monitor: EPS: PPM: CXR: Chest CT Scan: Medical Necessity - Tobacco Use Smoking Status: Current every day smoker Tobacco Use: Chew Assessment/Plan 1. Shortness of breath The above appears to be more likely and consistent with acute congestive heart failure. His echocardiogram demonstrated globally severely reduced ejection fraction estimated at 20%. The above is likely secondary to hypertensive heart disease. Ideally he does need a cardiac catheterization however the patient is insistent on going home and with his creatinine elevating I would recommend that this be performed as an outpatient when he is stabilized. He can therefore be discharged on Lasix 40 mg twice daily and carvedilol 12.5 mg twice daily 2. Uncontrolled hypertension Patient has a history of uncontrolled hypertension and has not been compliant Will start Coreg and Norvasc We will hold off on ESTEFANY inhibitor due to rising creatinine. 3. Abnormal cardiac enzymes The above likely secondary to demand ischemia. 4. Possible pulmonary embolism Review with radiologist. There is no evidence of pulmonary embolism. Xarelto has therefore been discontinued. Thank you for allowing me to participate in the care of your patient. Please don't hesitate to call if any issues arise
--- NOTE | 2018-04-16 08:42 | PCM.DC ---
- Discharge Diagnoses Current Active Problems: Current Active and Chronic Problems Dyspnea (Acute) HTN (hypertension) (Chronic) You will use the following diet at home:: Cardiac - <2 g sodium daily Your food should be the consistency of: Regular Your liquids should be the consistency of: Regular/Thin Discharge Activity: Return to Normal Activity Allergies/Adverse Reactions: Allergies No Known Allergies Allergy (Verified 04/14/18 19:09) Medications to take at Discharge Amlodipine [Norvasc] 5 mg PO DAILY #30 tab 04/16/18 Carvedilol [Coreg (Beta Ev)] 12.5 mg PO BID #60 tab 04/16/18 Furosemide [Lasix] 40 mg PO BID@1000,1800 #60 tab 04/16/18 The following prescriptions were given: Amlodipine [Norvasc] 5 mg PO DAILY #30 tab Carvedilol [Coreg (Beta Ev)] 12.5 mg PO BID #60 tab Furosemide [Lasix] 40 mg PO BID@1000,1800 #60 tab Orders to be completed after discharge: Basic Metabolic Profile (BMP) Time Frame: 5 Days, Location: Laboratory Primary Care Physician: NOT,DEFINED [NON-STAFF] - Please follow up with your Primary Care Physician in: 1-2 weeks Test Results: Test results from this visit will be discussed in further detail at your follow-up appointment, if applicable. Please Follow Up With: Manoj Rowland MD When: 2 weeks Proposed Discharge Date: 04/16/18
--- NOTE | 2018-04-16 08:45 | DCINST_ITS ---
- Discharge Diagnoses Current Active Problems: Current Active and Chronic Problems Dyspnea (Acute) HTN (hypertension) (Chronic) You will use the following diet at home:: Cardiac - <2 g sodium daily Your food should be the consistency of: Regular Your liquids should be the consistency of: Regular/Thin Discharge Activity: Return to Normal Activity Allergies/Adverse Reactions: Allergies No Known Allergies Allergy (Verified 04/14/18 19:09) Medications to take at Discharge Amlodipine [Norvasc] 5 mg PO DAILY #30 tab 04/16/18 Carvedilol [Coreg (Beta Ev)] 12.5 mg PO BID #60 tab 04/16/18 Furosemide [Lasix] 40 mg PO BID@1000,1800 #60 tab 04/16/18 The following prescriptions were given: Amlodipine [Norvasc] 5 mg PO DAILY #30 tab Carvedilol [Coreg (Beta Ev)] 12.5 mg PO BID #60 tab Furosemide [Lasix] 40 mg PO BID@1000,1800 #60 tab Orders to be completed after discharge: Basic Metabolic Profile (BMP) Time Frame: 5 Days, Location: Laboratory Primary Care Physician: NOT,DEFINED [NON-STAFF] - Please follow up with your Primary Care Physician in: 1-2 weeks Test Results: Test results from this visit will be discussed in further detail at your follow- up appointment, if applicable. Please Follow Up With: Manoj Rowland MD When: 2 weeks Proposed Discharge Date: 04/16/18
[2018-04-16 09:10] VITALS: BP 129/86; PULSE 66; RESP 14; TEMP 36.6; O2SAT 99
--- NOTE | 2018-04-16 09:18 | CASEMGMT ---
OSWALDO spoke with patient and let him know 2 of his 3 d/c medications are on [employer] $4 list. OSWALDO told him SW is not sure about the third one, but SW could check on cost for him. He declined and stated he will be fine. Parris JACOME MSW
[2018-04-16] MEDS: Carvedilol 12.5 MG Tablet PO (09:19)
[2018-04-16] MEDS: amLODIPine 5 MG Tablet PO (09:19)
[2018-04-16] MEDS: Furosemide 40 MG Tablet PO (09:19)
--- NOTE | 2018-04-16 13:12 | PCM.DC.SUM ---
<Dmitri Duarte - Last Filed: 04/16/18 13:12> Discharge Date and Diagnosis - Problem List Patient Problems: Active and Suspected Problems Systolic CHF (Acute) Date of Admission: 04/14/18 Date of Discharge: 04/16/18 - Primary Discharge Diagnosis Active and Suspected Problems Systolic CHF (Acute), no prior history Suspected hypertensive cardiomyopathy Hypertension PE ruled out - Secondary Discharge Diagnosis Chronic Problems HTN (hypertension) (Chronic) Hospital Course and Treatment Imaging Results: RAD/Chest 1 View (Portable) IMPRESSION: Cardiac enlargement. Interstitial edema or fibrosis. CT/CTA Chest W/WO Contrast IMPRESSION: Abnormal CTA chest examination, with a demonstrated small pulmonary embolism on the right. Small right pleural effusion. Lower lung edema. Results discussed with Dr. Matos. Echo: Interpretation Summary Moderately dilated left ventricle. The estimated ejection fraction is 20 %. Stage 2 diastolic dysfunction. The left atrium is mildly enlarged. Mild (1+) tricuspid valve insufficiency. Pulmonary artery systolic pressure is 45 mmHg. Mild pulmonary hypertension. Consults: Janett - cardiology Operations: None Procedures: 2-D Echocardiogram Summary of Care Provided: Physical exam on day of discharge: General: Resting comfortably NAD Psych: A/Ox3 normal affect HEENT: PEARRLA AT NC Neck: Supple NT CV: RRR no m/t/r/g/h Resp: Faint fine rales posterior lung bases. Abd: [id number] Soft NT no guarding or rigidity Ext: DP2+= no edema Skin: W/D normal turgor Lymph/Heme: No active bleeding or adenopathy Neuro: CN2-12 intact Hospital course: The patient is a 47 year old M with past medical history of untreated hypertension who presented to the emergency room with chief complaint of shortness of breath, lower extremity edema. Was found to have a severely elevated beta natruretic peptide, chest x-ray consistent with CHF, and indeterminate troponins. CTA was also obtained which was questionable for PE which was later ruled out. He was admitted to the PCU and started on IV Lasix, and Xarelto. Cardiology was consulted. He was later placed on Coreg, and amlodipine for his blood pressure. He underwent an echocardiogram the following day which should demonstrate moderately dilated left ventricle, EF of only 20%, stage II diastolic dysfunction, pulmonary artery systolic pressure of 45 millimeters of mercury consistent with mild pulmonary hypertension. He responded very quickly to IV Lasix and had improvement in his breathing and lower extremity edema after the first night. Xarelto was discontinued per direction of cardiology as it was not felt that he actually did have a PE. He did not require further oxygen and had very little shortness of breath so it was felt that he could be discharged home in stable condition with follow-up with cardiology who plans to have heart catheterization as an outpatient. He was discharged on Lasix, Coreg, and Norvasc. Please also follow-up with your PCP in 1-2 weeks. ESTEFANY inhibitor was deferred at this time for fluctuating renal disease and I have advised him to get a BMP as an outpatient before his follow-up with his PCP. This patient was seen by Dmitri Duarte PA-C under the supervision of Doctor Alma. [] Discharge Diet: Low fat/ Low Cholesterol, 2000 mg Sodium Diet Discharge Activity: Return to Normal Activity Home Medications: Medications to take at Discharge Amlodipine [Norvasc] 5 mg PO DAILY #30 tab 04/16/18 Carvedilol [Coreg (Beta Ev)] 12.5 mg PO BID #60 tab 04/16/18 Furosemide [Lasix] 40 mg PO BID@1000,1800 #60 tab 04/16/18 Following Prescrptions Were Given to Patient: Amlodipine [Norvasc] 5 mg PO DAILY #30 tab Carvedilol [Coreg (Beta Ev)] 12.5 mg PO BID #60 tab Furosemide [Lasix] 40 mg PO BID@1000,1800 #60 tab Other Amb Orders: Basic Metabolic Profile (BMP) Time Frame: 5 Days, Location: Laboratory Primary Care Physician: NOT,DEFINED [NON-STAFF] - Please follow up with your Primary Care Physician in: 1-2 weeks Please Follow Up With: Manoj Rowland MD When: 2 weeks Disposition: Home Minutes spent on discharge:: 35 Patient Condition:: Stable Medical Necessity - Tobacco Use Smoking Status: Current every day smoker Tobacco Use: Chew Meaningful Use Info Meaningful Use Diagnoses (Choose all that apply): CHF - CHF ESTEFANY/ARB ordered at discharge?: No Reason ESTEFANY/ARB not ordered?: Worsening renal disease Documented LVEF (%): 20 <Ernie Marquez - Last Filed: 04/16/18 15:07> Discharge Date and Diagnosis - Primary Discharge Diagnosis Active and Suspected Problems Systolic CHF (Acute) - Secondary Discharge Diagnosis Chronic Problems HTN (hypertension) (Chronic) Hospital Course and Treatment Summary of Care Provided: The patient is a 47 year old M [] Code Visit Addendum: Dr. Marquez I personally examined the patient and reviewed the chart. I agree with the above. Mr. Bui is a 47-year-old male with a past medical history significant for hypertension. He does not have a primary care physician so we are unsure as to how long he has had hypertension. There was shortness of breath and was felt to likely be in heart failure given an elevated proBNP. Echo demonstrated an EF of 20% so he was started on aggressive blood pressure control with cardiology follow-up as an outpatient and I advised that he also find a primary care physician. He will undergo further cardiac workup as an outpatient. Inpatient E&M: [id number] [facility]
--- NOTE | 2018-04-16 13:17 | DS.PCM_ITS ---
<Dmitri Duarte - Last Filed: 04/16/18 13:12> Discharge Date and Diagnosis - Problem List Patient Problems: Active and Suspected Problems Systolic CHF (Acute) Date of Admission: 04/14/18 Date of Discharge: 04/16/18 - Primary Discharge Diagnosis Active and Suspected Problems Systolic CHF (Acute), no prior history Suspected hypertensive cardiomyopathy Hypertension PE ruled out - Secondary Discharge Diagnosis Chronic Problems HTN (hypertension) (Chronic) Hospital Course and Treatment Imaging Results: RAD/Chest 1 View (Portable) IMPRESSION: Cardiac enlargement. Interstitial edema or fibrosis. CT/CTA Chest W/WO Contrast IMPRESSION: Abnormal CTA chest examination, with a demonstrated small pulmonary embolism on the right. Small right pleural effusion. Lower lung edema. Results discussed with Dr. Matos. Echo: Interpretation Summary Moderately dilated left ventricle. The estimated ejection fraction is 20 %. Stage 2 diastolic dysfunction. The left atrium is mildly enlarged. Mild (1+) tricuspid valve insufficiency. Pulmonary artery systolic pressure is 45 mmHg. Mild pulmonary hypertension. Consults: Janett - cardiology Operations: None Procedures: 2-D Echocardiogram Summary of Care Provided: Physical exam on day of discharge: General: Resting comfortably NAD Psych: A/Ox3 normal affect HEENT: [place] AT NC Neck: Supple NT CV: RRR no m/t/r/g/h Resp: Faint fine rales posterior lung bases. Abd: [id number] Soft NT no guarding or rigidity Ext: DP2+= no edema Skin: W/D normal turgor Lymph/Heme: No active bleeding or adenopathy Neuro: CN2-12 intact Hospital course: The patient is a 47 year old M with past medical history of untreated hypertension who presented to the emergency room with chief complaint of shortness of breath, lower extremity edema. Was found to have a severely elevated beta natruretic peptide, chest x-ray consistent with CHF, and indeterminate troponins. CTA was also obtained which was questionable for PE which was later ruled out. He was admitted to the PCU and started on IV Lasix, and Xarelto. Cardiology was consulted. He was later placed on Coreg, and amlodipine for his blood pressure. He underwent an echocardiogram the following day which should demonstrate moderately dilated left ventricle, EF of only 20%, stage II diastolic dysfunction, pulmonary artery systolic pressure of 45 mill imeters of mercury consistent with mild pulmonary hypertension. He responded very quickly to IV Lasix and had improvement in his breathing and lower extremity edema after the first night. Xarelto was discontinued per direction of cardiology as it was not felt that he actually did have a PE. He did not require further oxygen and had very little shortness of breath so it was felt that he could be discharged home in stable condition with follow-up with cardiology who plans to have heart catheterization as an outpatient. He was discharged on Lasix, Coreg, and Norvasc. Please also follow-up with your PCP in 1-2 weeks. ESTEFANY inhibitor was deferred at this time for fluctuating renal disease and I have advised him to get a BMP as an outpatient before his follow- up with his PCP. This patient was seen by Dmitri Duarte PA-C under the supervision of Doctor Alma. [] Discharge Diet: Low fat/ Low Cholesterol, 2000 mg Sodium Diet Discharge Activity: Return to Normal Activity Home Medications: Medications to take at Discharge Amlodipine [Norvasc] 5 mg PO DAILY #30 tab 04/16/18 Carvedilol [Coreg (Beta Ev)] 12.5 mg PO BID #60 tab 04/16/18 Furosemide [Lasix] 40 mg PO BID@1000,1800 #60 tab 04/16/18 Following Prescrptions Were Given to Patient: Amlodipine [Norvasc] 5 mg PO DAILY #30 tab Carvedilol [Coreg (Beta Ev)] 12.5 mg PO BID #60 tab Furosemide [Lasix] 40 mg PO BID@1000,1800 #60 tab Other Amb Orders: Basic Metabolic Profile (BMP) Time Frame: 5 Days, Location: Laboratory Primary Care Physician: NOT,DEFINED [NON-STAFF] - Please follow up with your Primary Care Physician in: 1-2 weeks Please Follow Up With: Manoj Rowland MD When: 2 weeks Disposition: Home Minutes spent on discharge:: 35 Patient Condition:: Stable Medical Necessity - Tobacco Use Smoking Status: Current every day smoker Tobacco Use: Chew Meaningful Use Info Meaningful Use Diagnoses (Choose all that apply): CHF - CHF ESTEFANY/ARB ordered at discharge?: No Reason ESTEFANY/ARB not ordered?: Worsening renal disease Documented LVEF (%): 20 <Ernie Marquez - Last Filed: 04/16/18 15:07> Discharge Date and Diagnosis - Primary Discharge Diagnosis Active and Suspected Problems Systolic CHF (Acute) - Secondary Discharge Diagnosis Chronic Problems HTN (hypertension) (Chronic) Hospital Course and Treatment Summary of Care Provided: The patient is a 47 year old M [] Code Visit Addendum: Dr. Marquez I personally examined the patient and reviewed the chart. I agree with the above. Mr. Bui is a 47-year-old male with a past medical history significant for hypertension. He does not have a primary care physician so we are unsure as to how long he has had hypertension. There was shortness of breath and was felt to likely be in heart failure given an elevated proBNP. Echo demonstrated an EF of 20% so he was started on aggressive blood pressure control with c ardiology follow-up as an outpatient and I advised that he also find a primary care physician. He will undergo further cardiac workup as an outpatient. Inpatient E&M: [id number] Disch Hosp
== END 2018-04-16 10:17 | disposition home or self-care (01) | DRG 291 ==
LOC: ED 20:08 → PCU 22:14
PROVIDERS: Physician Assistant; Admitting Provider Hospitalist; Emergency Provider Emergency Medicine; Visit Provider Family Medicine
DX: I11.0 Hypertensive heart disease with heart failure (principal); I50.21 Acute systolic (congestive) heart failure; I43 Cardiomyopathy in diseases classified elsewhere; F17.200 Nicotine dependence, unspecified, uncomplicated
CPT/HCPCS: 36415; 71045; 71275; 80048; 80061; 82043; 82570; 83735; 83880; 84156; 84443; 84484; 85025; 85610; 93005; 93306; 99284; 99406; Q9967; A4216; J1940

== ENCOUNTER → 2018-04-23 13:52 | Outpatient (CLI) | payer SELFPAY ==
[2018-04-23 15:55] LABS: Anion Gap 8 (5-15); BUN 30 mg/dL (7-18); BUN/Creat Ratio 19.2 RATIO (10-20); Calcium,Total 9.2 mg/dL (8.5-10.1); Chloride 101 mmol/L (98-107); Creatinine, Serum 1.56 mg/dL (0.70-1.30); EST Glomerular Filtration Rate 51 mL/min (>60); Est Glom Filt Rate - Afr Amer 62 mL/min (>60); Glucose 96 mg/dL (74-106); Potassium 4.2 mmol/L (3.5-5.1); Sodium Level 139 mmol/L (136-145)
== END ==
PROVIDERS: Referring Provider Physician Assistant; Visit Provider Physician Assistant
DX: Z00.00 Encounter for general adult medical examination without abnormal findings (principal)
CPT/HCPCS: 36415; 80048

== ENCOUNTER 2018-04-30 06:32 | Day surgery (SDC) | payer SELFPAY ==
[2018-04-29 08:53] VITALS: BMI 31.3
--- NOTE | 2018-04-30 07:47 | CL.D_ITS ---
Patient Name: ANGELIQUE BENNETT Study Date: 04/30/2018 Performing: Manoj Rowland MD Ht: 66.14 inches 168 cm : 1970 Wt: 194.01 lbs 88 kg Age: 47 Gender: male BSA: 1.98 PROCEDURE(S) PERFORMED [id number] CLINICAL PROFILE AND INDICATIONS Indications: Cardiomyopathy Heart Failure: None Stress/Imaging Stress/Image Study Performed: No CONCLUSIONS Normal coronary arteries Cardiomyopathy: Dilated RECOMMENDATIONS Medical therapy DESCRIPTION OF PROCEDURE The patient arrived to the procedure lab. The risks and benefits of the procedure as well as a full d escription of our services here and current unavailability of surgical backup were fully explained to the patient and/or their significant other prior to the catheterization. The Timeout was completed, verifying the correct patient and procedure. The patient's procedural site was prepped and draped in the usual fashion. Local anesthetic was given subcutaneously to right radial region with Lidocaine 2% . Using a modified Seldinger technique, arterial access was obtained via the right radial artery, a 6 Fr sheath was inserted. Right Coronary Artery selective angiography was then performed in multiple v iews using a 5 Fr. 4.0 [place] catheter.The arterial sheath was pulled and a TR Band was applied for he mostasis w/ 12ml air CORONARY ANGIOGRAPHY DOMINANCE: Right Dominant LEFT HEART ASSESSMENT Left Ventricular Ejection Fraction: by Echo 20 % Global Hypokinesis - Severe Normal Left Ventricular systolic function Depressed Left Ventricular systolic function LEFT MAIN: Angiographically normal LEFT ANTERIOR DECENDING ARTERY: Angiographically normal CIRCUMFLEX ARTERY: Angiographically normal RIGHT CORONARY ARTERY: Angiographically normal COMPLICATIONS No Complications PROCEDURE MEDICATIONS Fentanyl 50 mcg IV Versed 1 mg IV Oxygen: 2 L/min via nasal cannula Heparin diluted in 23cc Heparinized saline. Patient given 10cc IA of this solution. 04/30/2018 07:33 :06 Verapamil 2.5mg, Ntg 100mcgs, 2000 units of Heparin diluted in 23cc Heparinized saline. Patient give n 10cc IA of this solution. 04/30/2018 07:33:06 IV Bolus: .9 NaCl ml total 04/30/2018 07:34:33 SUMMARY OF HEMODYNAMIC DATA Time AIR REST ECG 06:58:39 ECG 06:58:46 AO 86/54 (67) SA 07:34:22 Signed By Manoj Rowland MD On 04/30/2018 07:46:26 Manoj Rowland MD
== END 2018-04-30 10:20 | disposition home or self-care (01) ==
PROVIDERS: Referring Provider Internal Medicine Cardiovascular Disease; Visit Provider Internal Medicine Cardiovascular Disease
DX: I42.9 Cardiomyopathy, unspecified (principal); I11.0 Hypertensive heart disease with heart failure; I50.21 Acute systolic (congestive) heart failure; I27.20 Pulmonary hypertension, unspecified; F17.200 Nicotine dependence, unspecified, uncomplicated; E66.9 Obesity, unspecified; Z68.31 Body mass index [BMI] 31.0-31.9, adult; Z79.82 Long term (current) use of aspirin; Z79.899 Other long term (current) drug therapy
CPT/HCPCS: 93454; 99152; J7040; Q9967; C1769; C1894

== ENCOUNTER → 2018-09-10 09:54 | Outpatient (CLI) | payer SELFPAY ==
[2018-08-26 13:29] VITALS: BMI 32.4
--- NOTE | 2018-09-10 09:56 | ECHOD_ITS ---
Reason For Study: HTN Procedure This was a 2D Doppler, Color Flow transthoracic echocardiogram. Exam performed in department. Left Ventricle Normal LV size. Mild concentric left ventricular hypertrophy. The estimated ejection fraction is 25 %. Stage 1 diastolic dysfunction. There is severe global hypokinesis of the left ventricle. Right Ventricle Normal RV size. Normal systolic function. Atria Normal left atrium. Normal right atrium. Mitral Valve Normal mitral valve. Tricuspid Valve Normal tricuspid valve. Mild (1+) tricuspid valve insufficiency. Pulmonary artery systolic pressure is 29 mmHg. Aortic Valve Normal aortic valve. Trisinus/trileaflet aortic valve. Pulmonic Valve Normal pulmonic valve. Great Vessels Normal aortic root. The pulmonary artery is normal size. Normal inferior vena cava. Pericardium/Pleural No pericardial effusion. MMode/2D Measurements & Calculations LVIDd: 5.6 cm IVSd: 1.3 cm Ao root diam: 3.3 cm LVIDs: 4.4 cm LVPWd: 1.3 cm RVDd: 3.1 cm FS: 20.4 % LAV(MOD-bp): 38.1 ml EDV(MOD-sp4): 159.3 ml EDV(MOD-sp2): 99.0 ml LAV(MOD-bp) Indexed: 19.0 ml/m2 ESV(MOD-sp4): 97.1 ml EF(MOD-sp2): 28.9 % LAV(MOD-sp2): 33.2 ml EF(MOD-sp4): 39.1 % LAV(MOD-sp4): 35.6 ml SV(MOD-sp4): 62.2 ml SV(MOD-sp2): 28.6 ml LA A4 area: 14.7 cm2 LA dimension(2D): 3.2 cm RA A4 area: 10.9 cm2 Doppler Measurements & Calculations MV E max danny: 49.9 cm/sec Lat Peak E' Danny: 4.6 cm/sec Med Peak E' Danny: 4.1 cm/sec MV A max danny: 67.6 cm/sec E/E' lat: 10.9 E/E' med: 12.3 MV E/A: 0.74 Ao V2 max: 132.7 cm/sec LV V1 max: 82.7 cm/sec PA V2 max: 88.7 cm/sec Ao max P.0 mmHg LV V1 max P.7 mmHg TR max danny: 244.9 cm/sec TR max P.2 mmHg Interpretation Summary Normal LV size. Mild concentric left ventricular hypertrophy. The estimated ejection fraction is 25 %. Stage 1 diastolic dysfunction. The global longitudinal strain = -8% (abnormal). Compared to previous study, the left ventricular systolic function is the same.. Ordering Physician: Manoj Rowland Referring Physician: Manoj Rowland Performed By: Karla Rand RDCS
== END ==
PROVIDERS: Referring Provider Internal Medicine Cardiovascular Disease; Visit Provider Internal Medicine Cardiovascular Disease
DX: I42.9 Cardiomyopathy, unspecified (principal); I10 Essential (primary) hypertension
CPT/HCPCS: 93306

== ENCOUNTER → 2019-06-14 07:40 | Outpatient (CLI) | payer SELFPAY ==
[2019-05-27 07:48] VITALS: BMI 32.3
--- NOTE | 2019-06-14 07:41 | ECHOD_ITS ---
Reason For Study: Dyspnea/SOB Procedure This was a 2D Doppler, Color Flow transthoracic echocardiogram. Technically difficult due to arrhythmia. Exam performed in department. Left Ventricle Normal LV size. Mild concentric left ventricular hypertrophy. The estimated ejection fraction is 50 %. Septal motion consistent with IVCD. Stage 1 diastolic dysfunction. Basal anteroseptal: Hypokinetic. Right Ventricle Normal RV size. Normal systolic function. Atria Normal left atrium. Normal right atrium. Mitral Valve Normal mitral valve. Mild (1+) mitral valve insufficiency. Tricuspid Valve Normal tricuspid valve. Mild (1+) tricuspid valve insufficiency. Pulmonary artery systolic pressure is 33 mmHg. Aortic Valve Normal aortic valve. Trisinus/trileaflet aortic valve. Pulmonic Valve Normal pulmonic valve. Great Vessels Normal aortic root. Pericardium/Pleural No pericardial effusion. MMode/2D Measurements & Calculations LVIDd: 4.9 cm IVSd: 1.2 cm Ao root diam: 3.2 cm LVIDs: 3.6 cm LVPWd: 1.3 cm LA dimension: 3.4 cm RVDd: 2.9 cm FS: 27.2 % LAV(MOD-bp): 31.4 ml LA A4 area: 13.2 cm2 RA A4 area: 12.7 cm2 LAV(MOD-bp) Indexed: 15.7 ml/m2 LAV(MOD-sp2): 26.7 ml LAV(MOD-sp4): 29.3 ml Time Measurements MV dec time: 0.22 sec Doppler Measurements & Calculations MV E max danny: 62.7 cm/sec Lat Peak E' Danny: 8.6 cm/sec MV V2 max: 101.6 cm/sec MV A max danny: 87.6 cm/sec E/E' lat: 7.3 MV max P.1 mmHg MV E/A: 0.72 MV V2 mean: 55.3 cm/sec MV mean P.5 mmHg MV V2 VTI: 20.6 cm PA V2 max: 93.4 cm/sec TR max danny: 273.0 cm/sec TR max P.8 mmHg Interpretation Summary Normal LV size. Mild concentric left ventricular hypertrophy. The estimated ejection fraction is 50 %. Septal motion consistent with IVCD. Mild (1+) tricuspid valve insufficiency. Pulmonary artery systolic pressure is 33 mmHg. Stage 1 diastolic dysfunction. Ordering Physician: Manoj Rowland Referring Physician: Manoj Rowland Performed By: Prabhjot Hebert RCS
== END ==
PROVIDERS: Referring Provider Internal Medicine Cardiovascular Disease; Visit Provider Internal Medicine Cardiovascular Disease
DX: R06.02 Shortness of breath (principal); I42.8 Other cardiomyopathies
CPT/HCPCS: 93306

== ENCOUNTER → 2021-04-18 | Outpatient (CLI) | payer SELFPAY ==
[2021-04-18 13:12] LABS: Bacteria 0 SEEN /hpf (None Seen); Mucous, Urine 0 SEEN /hpf (<or=2+); Squamous Epithelial Cells - UA 0 SEEN /hpf (0-5)
[2021-04-18 13:21] LABS: Color, Urine Yellow (Yellow); Glucose, Dipstick Normal (Normal); Ketone-Dipstick Negative (Negative); Leukocyte Esterase-Dipstick 25 /ul (Negative); Nitrite-Dipstick Negative (Negative); Occult Blood-Urine 250 /ul (Negative); Protein-Dipstick 30 mg/dl (Negative); Specific Gravity, Urine 1.015 (1.002-1.030); Urine Bilirubin Dipstick Negative (Negative); Urine Clarity Clear (Clear); Urine Urobilinogen Normal (Normal)
[2021-04-18 13:29] LABS: Red Blood Cells-Urine 0-5 SEEN /hpf (0-5); White Blood Cells 0-5 SEEN /hpf (0-5)
== END | disposition home or self-care (01) ==
LOC: LABSPEC 12:58
PROVIDERS: Referring Provider Physician Assistant; Visit Provider Physician Assistant
DX: N39.0 Urinary tract infection, site not specified (principal)
CPT/HCPCS: 81001; 87086

== ENCOUNTER → 2022-06-24 | Outpatient (CLI) | payer SELFPAY ==
--- NOTE | 2022-06-24 13:35 | ECHOD_ITS ---
Reason For Study: Non Isch CMP Procedure This was a 2D Doppler, Color Flow transthoracic echocardiogram. Exam performed in department. Left Ventricle Normal LV size. Left ventricular systolic function is normal. The estimated ejection fraction is 55 %. Diastolic function is indeterminate. No regional wall motion abnormalities noted. Right Ventricle Normal RV size. Normal systolic function. Atria Normal left atrium. Normal right atrium. No doppler evidence for ASD. Mitral Valve There is no mitral annular calcification. Normal mitral valve. Trivial mitral valve insufficiency. Tricuspid Valve Mild diffuse thickening of the tricuspid valve. Mild tricuspid valve insufficiency. Right ventricular systolic pressure estimated to be 45 mmHg. Aortic Valve Trisinus/trileaflet aortic valve. Mild diffuse aortic valve thickening. Mild focal aortic valve calcification. Pulmonic Valve The pulmonic valve is not well visualized. Trivial pulmonic valve insufficiency. Great Vessels Normal sized aortic root. Pericardium/Pleural No pericardial effusion. MMode/2D Measurements & Calculations LVIDd: 4.2 cm IVSd: 1.3 cm Ao root diam: 3.6 cm LVIDs: 2.6 cm LVPWd: 1.1 cm LA dimension: 3.5 cm RVDd: 3.2 cm FS: 37.0 % LAV(MOD-bp): 32.7 ml LA A4 area: 14.2 cm2 RA A4 area: 12.9 cm2 LAV(MOD-bp) Indexed: 16.5 ml/m2 LAV(MOD-sp2): 27.6 ml LAV(MOD-sp4): 29.6 ml Time Measurements MV dec time: 0.26 sec Doppler Measurements & Calculations MV E max danny: 53.6 cm/sec Lat Peak E' Danny: 9.5 cm/sec Med Peak E' Danny: 7.1 cm/sec MV A max danny: 79.7 cm/sec E/E' lat: 5.6 E/E' med: 7.6 MV E/A: 0.67 MV V2 max: 79.6 cm/sec Ao V2 max: 118.0 cm/sec LV V1 max: 80.6 cm/sec MV max P.5 mmHg Ao max P.6 mmHg LV V1 max P.6 mmHg MV V2 mean: 47.3 cm/sec MV mean P.0 mmHg MV V2 VTI: 16.6 cm PA V2 max: 96.3 cm/sec TR max danny: 322.4 cm/sec TR max P.7 mmHg ECHO/Echo Complete Interpretation Summary Left ventricular systolic function is normal. The estimated ejection fraction is 55 %. Trivial mitral valve insufficiency. Mild diffuse thickening of the tricuspid valve. Mild tricuspid valve insufficiency. Mild diffuse aortic valve thickening. Mild focal aortic valve calcification. Trivial pulmonic valve insufficiency. Right ventricular systolic pressure estimated to be 45 mmHg. Diastolic function is indeterminate. Ordering Physician: Padmini Abarca Referring Physician: Padmini Abarca Performed By: Prabhjot Hebert RCS
[2022-06-24 14:38] LABS: Erythrocyte Sedimentation Rate 13 mm/hr (0-20)
[2022-06-24 14:40] LABS: Absolute Lymphocyte Count 3.39 X10^3/uL (0.83-4.51); Absolute Neutrophil Count 6.9 X10^3/uL (2.0-7.7); Basophil# 0.07 X10^3/uL; Basophil% 0.6 % (0-1); Eosinophil# 0.42 X10^3/uL; Eosinophils% 3.6 % (0-5); Hematocrit 49.5 % (40-54); Hemoglobin 15.5 g/dL (13.0-16.5); Lymphocyte # 3.39 X10^3/ul (0.83-4.51); Lymphocyte % 29.4 % (19-41); Mean Corp Hgb Conc 31.3 g/dL (32-36); Mean Corpuscular Hgb 29.4 pg (27.0-32.0); Mean Corpuscular Volume 93.8 fL (80-94); Mean Platelet Vol. 10.7 fl (6.2-12.0); Monocyte# 0.71 X10^3/uL; Monocyte% 6.2 % (0-10); NRBC Flagged by Analyzer 0 % (0-5); Neutrophil # 6.92 X10^3/uL (2.7-7.7); Neutrophil % 59.9 % (47-70); Platelet Count 346 K/mm3 (150-450); RBC Distribution Width CV 12.5 % (11.6-14.6); RBC Distribution Width SD 43.3 fl (35.1-43.9); Red Blood Count 5.28 M/mm3 (4.6-6.2); White Blood Count 11.5 K/mm3 (4.4-11.0)
[2022-06-24 14:59] LABS: Vitamin D,25 Hydroxy 25.7 ng/mL
[2022-06-24 15:05] LABS: Hemoglobin A1c 5.8 % (3.8-5.6)
[2022-06-24 15:06] LABS: ALB/GLOB Ratio 0.8 RATIO (0.9-2.4); AST(SGOT) 25 U/L (15-37); Alanine Aminotransfer ALT/SGPT 49 U/L (16-61); Albumin, Serum 3.4 g/dL (3.2-5.0); Alkaline Phosphatase 62 U/L (45-117); Anion Gap 0 (5-15); BUN 18 mg/dL (7-18); BUN/Creat Ratio 11.8 RATIO (10-20); CRP < 2.90 mg/L (0.0-3.0); Calcium,Total 9.1 mg/dL (8.5-10.1); Chloride 110 mmol/L (98-107); Cholesterol 196 mg/dL (200); Creatinine, Serum 1.53 mg/dL (0.70-1.30); EST Glomerular Filtration Rate 52 mL/min (>60); Est Glom Filt Rate - Afr Amer 62 mL/min (>60); Glucose 111 mg/dL (74-106); High Density Lipoprotein 39 mg/dL; PSA,Total - Annual Screen 1.32 ng/mL (0.00-4.00); Protein, Total 7.4 g/dL (6.4-8.2); Sodium Level 140 mmol/L (136-145); Thyroid Stim Hormone (TSH) 1.97 uIU/mL (0.358-3.74); Triglycerides 259 mg/dL; Uric Acid 6.2 mg/dL (3.5-7.2); Very Low Density Lipoprotein 52 mg/dL (5-40)
== END | disposition home or self-care (01) ==
PROVIDERS: PCP Internal Medicine; Referring Provider Internal Medicine; Visit Provider Internal Medicine
DX: I11.0 Hypertensive heart disease with heart failure (principal); I50.22 Chronic systolic (congestive) heart failure; I42.8 Other cardiomyopathies; F17.200 Nicotine dependence, unspecified, uncomplicated; M10.9 Gout, unspecified; Z12.5 Encounter for screening for malignant neoplasm of prostate
CPT/HCPCS: 36415; 80053; 80061; 82306; 83036; 84153; 84443; 84550; 85025; 85652; 86140; 93306; G0103

== ENCOUNTER → 2024-01-18 | Outpatient (CLI) | payer SELFPAY ==
[2024-01-18 11:02] LABS: Absolute Lymphocyte Count 2.68 X10^3/uL (0.83-4.51); Absolute Neutrophil Count 8.1 X10^3/uL (2.0-7.7); Basophil# 0.06 X10^3/uL; Basophil% 0.5 % (0-1); Eosinophil# 0.27 X10^3/uL; Eosinophils% 2.3 % (0-5); Hematocrit 48.5 % (40-54); Hemoglobin 15.4 g/dL (13.0-16.5); Lymphocyte # 2.68 X10^3/ul (0.83-4.51); Lymphocyte % 22.7 % (19-41); Mean Corp Hgb Conc 31.8 g/dL (32-36); Mean Corpuscular Hgb 29.5 pg (27.0-32.0); Mean Corpuscular Volume 92.9 fL (80-94); Monocyte# 0.69 X10^3/uL; Monocyte% 5.9 % (0-10); NRBC Flagged by Analyzer 0 % (0-5); Neutrophil # 8.05 X10^3/uL (2.7-7.7); Neutrophil % 68.3 % (47-70); Platelet Count 261 K/mm3 (150-450); RBC Distribution Width CV 13.2 % (11.6-14.6); RBC Distribution Width SD 45.1 fl (35.1-43.9); Red Blood Count 5.22 M/mm3 (4.6-6.2); White Blood Count 11.8 K/mm3 (4.4-11.0)
[2024-01-18 11:25] LABS: Vitamin D,25 Hydroxy 41.5 ng/mL
[2024-01-18 12:06] LABS: ALB/GLOB Ratio 0.8 RATIO (0.9-2.4); AST(SGOT) 30 U/L (15-37); Alanine Aminotransfer ALT/SGPT 50 U/L (16-61); Albumin, Serum 3.2 g/dL (3.2-5.0); Alkaline Phosphatase 60 U/L (45-117); Anion Gap 4 (5-15); BUN 19 mg/dL (7-18); BUN/Creat Ratio 10.9 RATIO (10-20); Calcium,Total 9.2 mg/dL (8.5-10.1); Chloride 109 mmol/L (98-107); Cholesterol 227 mg/dL (200); Creatinine, Serum 1.74 mg/dL (0.70-1.30); EST Glomerular Filtration Rate 44 mL/min (>60); Est Glom Filt Rate - Afr Amer 53 mL/min (>60); Glucose 125 mg/dL (74-106); High Density Lipoprotein 42 mg/dL; PSA,Total - Annual Screen 0.69 ng/mL (0.00-4.00); Potassium 5.5 mmol/L (3.5-5.1); Protein, Total 7.2 g/dL (6.4-8.2); Sodium Level 140 mmol/L (136-145); Thyroid Stim Hormone (TSH) 0.89 uIU/mL (0.358-3.74); Triglycerides 317 mg/dL; Very Low Density Lipoprotein 63 mg/dL (5-40)
== END | disposition home or self-care (01) ==
PROVIDERS: PCP Internal Medicine; Referring Provider Internal Medicine; Visit Provider Internal Medicine
DX: I11.0 Hypertensive heart disease with heart failure (principal); I50.22 Chronic systolic (congestive) heart failure; I42.8 Other cardiomyopathies; E55.9 Vitamin D deficiency, unspecified; Z87.39 Personal history of other diseases of the musculoskeletal system and connective tissue; Z12.5 Encounter for screening for malignant neoplasm of prostate; Z13.220 Encounter for screening for lipoid disorders
CPT/HCPCS: 36415; 80053; 80061; 82306; 84153; 84443; 84550; 85025; G0103

== ENCOUNTER → 2024-10-24 | Outpatient (CLI) | payer SELFPAY ==
[2024-10-24 12:41] LABS: Absolute Lymphocyte Count 3.15 X10^3/uL (0.83-4.51); Absolute Neutrophil Count 5.7 X10^3/uL (2.0-7.7); Basophil# 0.09 X10^3/uL; Basophil% 0.9 % (0-1); Eosinophil# 0.48 X10^3/uL; Eosinophils% 4.6 % (0-5); Hematocrit 46.2 % (40-54); Hemoglobin 14.6 g/dL (13.0-16.5); Lymphocyte # 3.15 X10^3/ul (0.83-4.51); Lymphocyte % 30.5 % (19-41); Mean Corp Hgb Conc 31.6 g/dL (32-36); Mean Corpuscular Hgb 29.6 pg (27.0-32.0); Mean Corpuscular Volume 93.7 fL (80-94); Mean Platelet Vol. 10.9 fl (6.2-12.0); Monocyte# 0.92 X10^3/uL; Monocyte% 8.9 % (0-10); NRBC Flagged by Analyzer 0 % (0-5); Neutrophil # 5.66 X10^3/uL (2.7-7.7); Neutrophil % 54.8 % (47-70); Platelet Count 324 K/mm3 (150-450); RBC Distribution Width CV 12.8 % (11.6-14.6); RBC Distribution Width SD 43.8 fl (35.1-43.9); Red Blood Count 4.93 M/mm3 (4.6-6.2); White Blood Count 10.3 K/mm3 (4.4-11.0)
[2024-10-24 13:12] LABS: Cholesterol 177 mg/dL (<=200); High Density Lipoprotein 36 mg/dL; Low Density Lipoprotein Calc. 89 mg/dL; Triglycerides 258 mg/dL; Very Low Density Lipoprotein 52 mg/dL (5-40); Vitamin B12 603 pg/mL (180-914); Vitamin D,25 Hydroxy 25.3 ng/mL (30-100); cholesterol:hdl ratio screen 4.89
[2024-10-24 13:20] LABS: ALB/GLOB Ratio 1.2 RATIO (0.9-2.4); AST(SGOT) 24 U/L (<=37); Albumin, Serum 3.7 g/dL (3.5-5.0); Alkaline Phosphatase 67 U/L (40-129); Anion Gap 10 (5-15); BUN 20 mg/dL (4-19); Calcium,Total 9.1 mg/dL (7.6-11.0); Carbon Dioxide 24.5 mmol/L (21.0-32.0); Chloride 105 mmol/L (98-108); Creatinine, Serum 1.41 mg/dL (0.70-1.20); EST Glomerular Filtration Rate 60 (>60); Globulin 3.2 g/dL (2.2-4.2); Glucose 106 mg/dL (70-99); Potassium 4.3 mmol/L (3.3-5.1); Protein, Total 6.9 g/dL (5.9-8.4); Sodium Level 139 mmol/L (133-145); Total Bilirubin 0.31 mg/dL (0.00-1.30); Uric Acid 7.3 mg/dL (3.5-7.2)
[2024-10-24 13:24] LABS: Alanine Aminotransfer ALT/SGPT 32 U/L (<=46)
[2024-10-25 12:03] LABS: Hemoglobin A1c 6.3 % (<=5.6)
== END | disposition home or self-care (01) ==
LOC: BIMLAB 09:25
PROVIDERS: PCP Internal Medicine; Referring Provider Internal Medicine; Visit Provider Internal Medicine
DX: Z00.00 Encounter for general adult medical examination without abnormal findings (principal); I42.8 Other cardiomyopathies; N18.30 Chronic kidney disease, stage 3 unspecified; I12.9 Hypertensive chronic kidney disease with stage 1 through stage 4 chronic kidney disease, or unspecified chronic kidney disease; F17.200 Nicotine dependence, unspecified, uncomplicated; Z87.39 Personal history of other diseases of the musculoskeletal system and connective tissue; E55.9 Vitamin D deficiency, unspecified; E53.8 Deficiency of other specified B group vitamins; Z13.220 Encounter for screening for lipoid disorders; R73.9 Hyperglycemia, unspecified
CPT/HCPCS: 36415; 80053; 80061; 82306; 82607; 83036; 84443; 84550; 85025

== ENCOUNTER → 2025-03-20 | Outpatient (CLI) | payer SELFPAY ==
[2025-03-20 11:54] LABS: Mucous, Urine 0 SEEN /hpf (<or=2+)
[2025-03-20 15:12] LABS: Color, Urine Yellow (Yellow); Glucose, Dipstick Normal (Normal); Ketone-Dipstick Negative (Negative); Leukocyte Esterase-Dipstick Negative /ul (Negative); Nitrite-Dipstick Negative (Negative); Occult Blood-Urine 50 /ul (Negative); Protein-Dipstick 100 mg/dl (Negative); Specific Gravity, Urine 1.020 (1.002-1.030); Urine Bilirubin Dipstick Negative (Negative)
[2025-03-20 15:45] LABS: AST(SGOT) 30 U/L (<=37); Alanine Aminotransfer ALT/SGPT 35 U/L (<=46); Albumin, Serum 3.8 g/dL (3.5-5.0); Alkaline Phosphatase 61 U/L (40-129); Anion Gap 11 (5-15); BUN 21 mg/dL (4-19); BUN/Creat Ratio 13.1 RATIO (10-20); Calcium,Total 9.8 mg/dL (7.6-11.0); Carbon Dioxide 22.5 mmol/L (21.0-32.0); Chloride 107 mmol/L (98-108); Cholesterol 202 mg/dL (<=200); Globulin 3.2 g/dL (2.2-4.2); Glucose 95 mg/dL (70-99); Low Density Lipoprotein Calc. 123 mg/dL; Potassium 4.4 mmol/L (3.3-5.1); Triglycerides 196 mg/dL; Very Low Density Lipoprotein 39 mg/dL (5-40); cholesterol:hdl ratio screen 5.06
[2025-03-20 15:52] LABS: Red Blood Cells-Urine 0-5 SEEN /hpf (0-5); Squamous Epithelial Cells - UA 0-5 SEEN /hpf (0-5)
== END | disposition home or self-care (01) ==
LOC: BIMLAB 11:53
PROVIDERS: PCP Internal Medicine; Referring Provider Internal Medicine; Visit Provider Internal Medicine
DX: Z00.00 Encounter for general adult medical examination without abnormal findings (principal); I13.0 Hypertensive heart and chronic kidney disease with heart failure and stage 1 through stage 4 chronic kidney disease, or unspecified chronic kidney disease; I50.22 Chronic systolic (congestive) heart failure; I42.8 Other cardiomyopathies; N18.30 Chronic kidney disease, stage 3 unspecified; Z87.39 Personal history of other diseases of the musculoskeletal system and connective tissue; F17.200 Nicotine dependence, unspecified, uncomplicated; R73.09 Other abnormal glucose
CPT/HCPCS: 36415; 80053; 80061; 81001; 83036; 83525